=== PATIENT | male | born 1950 | race Caucasian/White ===

== ENCOUNTER 2017-05-26 08:30 | Inpatient (IN) | payer OTHER ==
[~2017-05-26] VITALS: Ht 188 cm; Wt 95.2 kg
[2017-05-26 09:07] LABS: BASOPHIL % 0.7 % (0-2); PLATELET COUNT 176 x10^3mcL (130-400); RED CELL DISTRIBUTION WIDTH 12.7 % (11.5-14.5)
[2017-05-26 09:18] LABS: CARBON DIOXIDE 25.4 mmol/L (21-32); CREATININE SERUM 2.1 mg/dL (0.7-1.3); POTASSIUM SERUM 3.9 mmol/L (3.5-5.1)
[2017-05-26] MEDS ORDERED: CYMBALTA30 M1 PO ×2 (09:45→09:46)
[2017-05-26] MEDS ORDERED: CALCIUM VIT D PO (09:46)
[2017-05-26] MEDS ORDERED: JALYN1 CAP PO (09:46)
[2017-05-26] MEDS ORDERED: OXCARBAZEPINE300 M1 PO (09:47)
[2017-05-26] MEDS ORDERED: COREG6.25 M1 PO (09:48)
[2017-05-26] MEDS ORDERED: ASPIR 8181 MG PO (09:48)
[2017-05-26] MEDS ORDERED: APAP500 MG PO (09:50)
[2017-05-26 11:28] VITALS: BP 120/59
[2017-05-26 14:20] LABS: CHOLESTEROL/HDL RATIO 5.8
[2017-05-26 15:37] VITALS: BP 140/68
[2017-05-26 17:25] VITALS: BP 143/80
[2017-05-26 21:47] VITALS: BP 138/71
[2017-05-27 05:40] VITALS: BP 132/72
[2017-05-27 05:57] LABS: CALCIUM 8.6 mg/dL (8.5-10.1); CARBON DIOXIDE 29.5 mmol/L (21-32); CREATININE SERUM 1.8 mg/dL (0.7-1.3); POTASSIUM SERUM 4.1 mmol/L (3.5-5.1)
[2017-05-27 09:30] VITALS: BP 161/71
[2017-05-27 14:14] VITALS: BP 152/79
[2017-05-27 14:47] VITALS: BP 152/79
== END 2017-05-27 18:47 | disposition other institution (70) | DRG 310 ==
LOC: ED 08:30 → DU 09:22 → IC 09:22 → DU 16:13
PROVIDERS: Emergency Medicine; Internal Medicine Cardiovascular Disease; ADMIT Internal Medicine
DX: I47.1 Supraventricular tachycardia (principal); I48.92 Unspecified atrial flutter; I25.10 Atherosclerotic heart disease of native coronary artery without angina pectoris; Z88.0 Allergy status to penicillin; Z88.6 Allergy status to analgesic agent; Z91.018 Allergy to other foods; Z90.49 Acquired absence of other specified parts of digestive tract; E78.5 Hyperlipidemia, unspecified; K21.9 Gastro-esophageal reflux disease without esophagitis; E11.22 Type 2 diabetes mellitus with diabetic chronic kidney disease; N18.9 Chronic kidney disease, unspecified
CPT/HCPCS: 83880; A9500; J0153; J0282; J2785; J3010; J3475; J7030; J7060

== ENCOUNTER 2018-03-23 13:01 | Inpatient (IN) | payer OTHER ==
[~2018-03-23] VITALS: Ht 188 cm; Wt 92.6 kg
[~2018-03-23 13:01] MED LIST: APAP500 MG PO; ASPIR 8181 MG PO; CALCIUM VIT D PO; COREG6.25 M1 PO; CYMBALTA30 M1 PO; JALYN1 CAP PO; OXCARBAZEPINE300 M1 PO
[2018-03-23 13:05] VITALS: Ht 188 cm; Wt 92.6 kg
[2018-03-23] MEDS ORDERED: OXCARBAZEPINE300 M1 PO (13:21)
[2018-03-23] MEDS ORDERED: GOOD SENSE OMEP20 MG PO (13:21)
[2018-03-23] MEDS ORDERED: NASACORT A55 MCG/Ac1 (13:22)
[2018-03-23] MEDS ORDERED: LOSARTAN POTASS25 M1 PO (13:23)
[2018-03-23] MEDS ORDERED: CARVEDILOL6.25 M1 PO (13:23)
[2018-03-23] MEDS ORDERED: ELIQUIS5 M1 PO (13:23)
[2018-03-23] MEDS ORDERED: ASPIR LOW81 MG PO (13:24)
[2018-03-23] MEDS ORDERED: LEADER NATURAL PO (13:24)
[2018-03-23] MEDS ORDERED: AVODART0.5 M1 PO (13:25)
[2018-03-23] MEDS ORDERED: ZETIA10 M1 PO (13:25)
[2018-03-23] MEDS ORDERED: FLOMAX0.4 MG PO (13:25)
[2018-03-23] MEDS ORDERED: EFFEXOR XR150 MG PO (13:26)
[2018-03-23 13:33] LABS: BASOPHIL % 0.9 % (0-2); PLATELET COUNT 217 x10^3mcL (130-400); RED CELL DISTRIBUTION WIDTH 12.7 % (11.5-14.5)
[2018-03-23 13:42] LABS: CALCIUM 9.1 mg/dL (8.5-10.1); CARBON DIOXIDE 27.7 mmol/L (21-32); CREATININE SERUM 1.5 mg/dL (0.7-1.3); POTASSIUM SERUM 4.5 mmol/L (3.5-5.1)
[2018-03-23 13:47] LABS: ALBUMIN 3.9 g/dL (3.4-5.0); BILIRUBIN TOTAL 0.3 mg/dL (0.20-1.00); TOTAL PROTEIN, SERUM 7.6 g/dL (6.4-8.2)
[2018-03-23 13:57] LABS: FREE T4 0.8 ng/dL (0.76-1.46); FREE THYROXINE INDEX 1.7 ug/dL (1.4-4.5); T3 TOTAL 0.92 ng/mL; T4(THYROXINE) 4.9 ug/dL (4.7-13.3)
[2018-03-23 16:39] VITALS: BP 119/55
[2018-03-23 17:28] LABS: CHOLESTEROL/HDL RATIO 4.7
[2018-03-23 19:40] VITALS: BP 98/50
[2018-03-24 04:21] LABS: microscopic required? NO
[2018-03-24 04:45] LABS: urine erythrocyte NEGATIVE (NEGATIVE)
[2018-03-24 04:51] LABS: AMPHETAMINE QUAL UR NONE DETECTED (See below)
[2018-03-24 06:15] VITALS: BP 124/61
[2018-03-24 06:31] LABS: CALCIUM 8.5 mg/dL (8.5-10.1); CARBON DIOXIDE 29.1 mmol/L (21-32); CREATININE SERUM 1.6 mg/dL (0.7-1.3); POTASSIUM SERUM 4.6 mmol/L (3.5-5.1)
[2018-03-24 07:16] LABS: PLATELET COUNT 177 x10^3mcL (130-400); RED CELL DISTRIBUTION WIDTH 12.2 % (11.5-14.5)
[2018-03-24 07:36] LABS: CHOLESTEROL/HDL RATIO 4.7
[2018-03-24 09:30] VITALS: BP 122/64
[2018-03-24 13:57] VITALS: BP 119/66
[2018-03-24 16:21] VITALS: BP 119/66
[2018-03-24 18:09] VITALS: BP 129/65
[2018-03-24 20:32] VITALS: BP 138/63
== END 2018-03-24 21:25 | disposition other institution (70) | DRG 310 ==
LOC: ED 13:01 → DU 15:55
PROVIDERS: Emergency Medicine; Internal Medicine
DX: I48.91 Unspecified atrial fibrillation (principal); K21.9 Gastro-esophageal reflux disease without esophagitis; I25.10 Atherosclerotic heart disease of native coronary artery without angina pectoris; E78.5 Hyperlipidemia, unspecified; I12.9 Hypertensive chronic kidney disease with stage 1 through stage 4 chronic kidney disease, or unspecified chronic kidney disease; N18.9 Chronic kidney disease, unspecified; N40.0 Benign prostatic hyperplasia without lower urinary tract symptoms; Z79.82 Long term (current) use of aspirin; Z79.01 Long term (current) use of anticoagulants; Z68.25 Body mass index [BMI] 25.0-25.9, adult; Z91.012 Allergy to eggs; Z88.5 Allergy status to narcotic agent; Z88.0 Allergy status to penicillin; Z88.8 Allergy status to other drugs, medicaments and biological substances; Z91.018 Allergy to other foods
CPT/HCPCS: 83880; 84439; J3490; Q0092